=== PATIENT | female | born 1975 | race Caucasian/White ===

== ENCOUNTER 2021-01-26 19:39 | Emergency (ER) | payer OTHER, SELFPAY | END 2021-01-26 21:19 | disposition left against medical advice (07) | PROVIDERS: Emergency Provider Emergency Medicine | DX: M54.2 Cervicalgia (principal) ==

== ENCOUNTER 2024-04-14 11:31 | Emergency (ER) | payer OTHER, SELFPAY ==
--- NOTE | ~2024-04-14 | CT_ITS ---
EXAMINATION: CT HEAD WITHOUT CONTRAST (STROKE PROTOCOL) CLINICAL INFORMATION: Stroke protocol. Headache. Left facial droop and left facial weakness COMPARISON: None available. TECHNIQUE: Contiguous axial imaging was performed from the skull base to vertex without intravenous administration of contrast. This CT examination was performed using dose optimization techniques as appropriate, variously including the following: *Automated exposure control *Adjustment of mA and/or kV according to patient size (this includes techniques or standardized protocols for targeted exams where dose is matched to indication/reason for exam; i.e. extremities or head) *Use of iterative reconstruction technique DLP: 677 mGy/cm. FINDINGS: There is no acute intra-axial, extra-axial bleed, masses or midline shift. There is no acute infarction evolution. There is no edema. The padilla to white matter differentiation is maintained normal. The lateral ventricles are symmetrical in size and configuration without enlargement. Bone windows reveal no calvarial abnormality. CT/CT head for STROKE IMPRESSION: No acute intracranial process seen. This critical result was discussed with Dr. Sanders at 12:35 PM It was ascertained that the content and urgency of the report was understood at the time of direct communication. Electronically signed by: Jasmeet Rivero MD 04/14/2024 12:38 PM [facility]
--- NOTE | ~2024-04-14 | MR_ITS ---
EXAMINATION: MR BRAIN WITHOUT CONTRAST CLINICAL INFORMATION: Acute stroke COMPARISON: None available. TECHNIQUE: MRI of the brain was obtained using routine sequences without contrast. FINDINGS: There is no restricted diffusion seen to suspect any acute ischemic changes. No magnetic sestamibi artifact seen to suspect any acute or chronic hemorrhagic products or calcification. There are T2 FLAIR signal changes in the deep white matter of both cerebral hemispheres without mass effect or edema. The lateral ventricles are symmetrical in size and configuration without enlargement. Normal flow-void signal seen in major cerebral vasculature abnormality seen in the posterior fossa. The lateral ventricles are symmetrical in size and configuration without enlargement. There is focal T2 signal changes left frontal lobe likely inflammatory process. Rest of the paranasal sinuses are well-aerated. MR/MR head/brain wo con IMPRESSION: No acute infarct or acute hemorrhagic changes. No extra-axial collection seen. Scattered small T2 foci in the deep white matter of both frontal lobes, nonspecific and can be seen with hypertension or diabetes. Electronically signed by: Jasmeet Rivero MD 04/14/2024 03:03 PM [facility]
--- NOTE | ~2024-04-14 | CT_ITS ---
EXAMINATION: CT HEAD NECK ANGIOGRAPHY WITH IV CONTRAST STROKE HISTORY: Stroke Protocol, PEÑA COMPARISON: Correlation is made with the unenhanced head CT performed earlier in the day. TECHNIQUE: Helical axial images were obtained from the aortic arch to the vertex after intravenous injection of contrast per standard departmental protocol. Postcontrast imaging of the head was also performed. MIP/3D reconstructions were obtained and reviewed. One or more of the following techniques was used for dose reduction: Automated exposure control, adjustment of the mA and/or kV according to patient size, use of iterative reconstruction technique. DLP: 1460 mGy-cm FINDINGS: CTA NECK: AORTIC ARCH: The visualized portions of the arch as well as innominate, right subclavian, and left subclavian arteries show no hemodynamically significant stenosis. Right common carotid artery: There is no large vessel occlusion or hemodynamically significant stenosis. Right internal carotid artery: There is no large vessel occlusion or hemodynamically significant stenosis. Left common carotid artery: There is no large vessel occlusion or hemodynamically significant stenosis. Left internal carotid artery: There is no large vessel occlusion or hemodynamically significant stenosis. (Extracranial internal carotid artery stenosis estimates are based on use of distal ICA as the denominator.) Right vertebral artery: There is no large vessel occlusion or hemodynamically significant stenosis. Left vertebral artery: There is no large vessel occlusion or hemodynamically significant stenosis. CTA HEAD: Right intracranial ICA: There is no large vessel occlusion, hemodynamically significant stenosis, or aneurysm. Right KOBE: There is no large vessel occlusion, hemodynamically significant stenosis, or aneurysm. Right MCA: There is irregularity of the M1 segment with a possible tiny filling defect (series 6, images 255-258). Findings could represent a small embolus or dissection, although a fenestration could also have this appearance. There is no large vessel occlusion, hemodynamically significant stenosis, or aneurysm. Left intracranial ICA: There is no large vessel occlusion, hemodynamically significant stenosis, or aneurysm. Left KOBE: The proximal portion of the left anterior cerebral artery is hypoplastic. Flow in more distal branches is noted from cross flow from the contralateral side. There is no large vessel occlusion, hemodynamically significant stenosis, or aneurysm. Left MCA: There is no large vessel occlusion, hemodynamically significant stenosis, or aneurysm. Basilar artery: There is no large vessel occlusion, hemodynamically significant stenosis, or aneurysm. Superior cerebellar arteries: There is no large vessel occlusion, hemodynamically significant stenosis, or aneurysm. Right SHROUD LINE TIER: There is no large vessel occlusion, hemodynamically significant stenosis, or aneurysm. Left SHROUD LINE TIER: There is no large vessel occlusion, hemodynamically significant stenosis, or aneurysm. VEINS: Venous enhancement is within normal limits for this technique. SOFT TISSUES: The bilateral parotid, submandibular, and thyroid glands are unremarkable. No laryngeal abnormality is identified. There is no cervical lymphadenopathy. CT/CT angio head neck STROKE IMPRESSION: Possible tiny embolus/dissection of the M1 segment of the right MCA versus a fenestration. Findings were discussed with CRISTOFER Acosta in the ER on 04/14/2024 at 1:49 pm. MRI of the brain is planned. No large vessel occlusion, hemodynamically significant stenosis, or aneurysm in the neck. Electronically signed by: Benedicto So MD 04/14/2024 01:56 PM [facility]
[2024-04-14 11:40] VITALS: BP 146/76; PULSE 72; RESP 16; TEMP 37; O2SAT 99; BMI 33.1
--- NOTE | 2024-04-14 11:43 | ECG_ITS ---
Test Reason : STROKE PROTOCOL Blood Pressure : */* mmHG Vent. Rate : 73 BPM Atrial Rate : 73 BPM P-R Int : 146 ms QRS Dur : 74 ms QT Int : 394 ms P-R-T Axes : 31 -17 21 degrees QTcB Int : 434 ms Normal sinus rhythm Anterior infarct (cited on or before 29-May-2018) Abnormal ECG When compared with ECG of 29-May-2018 17:03, No significant change was found Referred By: Ellen eVloz Electronically Signed By: Aime Barry
--- NOTE | 2024-04-14 11:45 | ED_ITS ---
HPI - General Adult General Chief complaint: Neuro Symptoms/Deficit Stated complaint: Facial numbness L side Time Seen by Provider: 04/14/24 11:48 History of Present Illness ED Provider: Dr. Sanders HPI narrative: 49 y/o F patient; [facility]; presents from work with report of sudden onset left-sided facial numbness, tongue numbness, left-sided facial droop, and mild left-sided headache. The patient otherwise reports mild left upper extremity tingling/numbness. She denies: fever or chills, SOB, cough/congestion, nausea/vomiting, syncope. She denies prior similar symptoms. Related Data Home Medications ?Medication ?Instructions ?Recorded ?Confirmed bictegravir 50 mg-emtricitabine 1 tab PO DAILY 04/14/24 04/14/24 200 mg-tenofovir alafenam 25 mg tablet ([place]oody) Previous Rx's ?Medication ?Instructions ?Recorded prednisone 20 mg tablet 60 mg (3 x 20 mg) PO DAILY 6 days 04/14/24 #18 tabs Allergies Allergy/AdvReac Type Severity Reaction Status Date / Time Penicillins [PENICILLINS] Allergy Unknown HIVES Verified 04/14/24 11:47 Sulfa (Sulfonamide Allergy Unknown HIVES Verified 04/14/24 11:47 Antibiotics) [SULFA(SULFONAMIDE ANTIBIOTICS)] From [facility] Allergy Unknown VOMITING Uncoded 11/26/19 17:18 Review of Systems 2 Review of Systems: Yes all other systems are reviewed and are negative Neurologic: Denies Abnormal speech present and Reports Sensory deficit (Neuro) (Left sided face and LUE) [facility] Past Medical History Attestation statement: The following information was validated with the patient. Source: unable to obtain Social History Social History Smoked in Last 30 Days: No Use of substances other than those prescribed or required for medical reasons: No Advance Directives: No Advance Directives Information Provided: Yes Physical Exam ED Vital Signs: Vital Signs - 24 hr 04/14/24 11:40 04/14/24 12:28 Temperature 98.6 F 98.1 F Pulse Rate 72 83 Respiratory Rate 16 14 Blood Pressure 146/76 H 123/77 Pulse Oximetry 99 98 Oxygen Delivery Method Room Air Room Air BMI result Body Mass Index 33.1 Patient is afebrile, mildly hypertensive. Const General: cooperative Orientation/consciousness: patient oriented x3 HENMT Head: Yes normal to inspection and Yes atraumatic Eyes General: appearance normal, both eyes and all related structures Pupils: Equal, round and reactive pupils present EOM: EOMs intact bilaterally Neck Neck: Yes normal visual inspection, Yes full ROM, Yes supple and No tender Chest Chest palpation & inspection: normal inspection of the chest and normal palpation of entire chest wall Resp Effort & Inspection: normal respiratory effort, able to speak in complete sentences, no cough and no respiratory distress Auscultation: clear to auscultation bilaterally Cardio Rate: regular rate Rhythm: regular rhythm Peripheral pulses: Peripheral pulses 2+ throughout GI Inspection: Yes normal to inspection, No Abdominal wall edema and No distended Palpation (GI): Soft to palpation, not firm, nontender, no guarding and not rigid Auscultation: normal bowel sounds Back/Spine/Pelvis Back: No back tenderness Neuro Other: + very slight left-sided facial droop General: patient oriented x3, moves all extremities and no focal motor deficits Cranial nerves: Yes Equal, round and reactive pupils present Cognition (Neuro): normal cognition Speech: No Abnormal speech present Gait exam (Neuro): Normal gait present Motor exam (neuro): 5/5 motor strength present throughout and Pronator motor function not present Sensory Exam: Sensory deficit (Neuro) (Left sided face and LUE) Coordination: [id number] test normal NIH Stroke Scale Internal: Initial- Upon Arrival Time: 11:45 Level of Consciousness: Alert Level of Consciousness Questions: Answers both questions correctly Level of Consciousness Commands: Performs both tasks correctly Best Gaze: Normal Visual: No visual loss Facial Palsy: Minor paralyis Motor Arm (Right): No drift Motor Arm (Left): No drift Motor Leg (Right): No drift Motor Leg (Left): No drift Limb Ataxia: Absent Sensory: Mild to moderate sensory loss Best Language: No aphasia Dysarthia: Normal Extinction and Inattention: No abnormality Score: 2 Course Course Course Narrative: Patient is afebrile and hemodynamically stable. Sent to the CT scanner for imaging. Possible william's palsy versus CVA/TIA. NIHSS 2 with minor deficits - not a candidate for TNK at this time. CT Head and CTA Brain unremarkable for acute abnormalities. Patient re-evaluated - reports improvement in LUE numbness. Still has mild left facial droop and left-sided facial numbness. Suspect likely william's palsy, less likely TIA/CVA or shingles. Started on prednisone 60mg OD. Discussed necessity for MRI Brain with hospitalist - ordered in the emergency department. I received a notification at 1349 that CTA was concerning for possible tiny embolus/dissection of the M1 segment of the right MCA versus a fenestration. Discussed with Neurology - recommend most likely a fenestration but agree with plan for MRI Brain. MRI Brain is unremarkable. Plan: Discharge to home with PCP follow up Return precautions given Patient given the following instructions: Prednisone 60mg for 6 days Return immediately for rash Medications Administered Discontinued Medications Generic Name Dose Route Start Last Admin Trade Name Freq PRN Reason Stop Dose Admin Iohexol 100 ml 04/14/24 12:09 04/14/24 12:10 Iohexol 350 Mg/Ml 100 Ml Infus..Btl IV 04/14/24 12:10 70 ml ONCE ONE Administration Prednisone 60 mg 04/14/24 12:46 04/14/24 13:16 Prednisone 20 Mg Tablet PO 04/14/24 12:47 60 mg ONCE ONE Administration Medical Decision Making Lab Data 04/14/24 12:00 04/14/24 12:00 Labs: Lab Results 04/14/24 04/14/24 Range/Units 11:48 12:00 WBC 10.3 (4.8-10.8) X10*3/uL RBC 5.08 (4.20-5.50) X10*6/uL Hgb 15.1 (12.0-16.0) g/dl Hct 43.6 (37.0-47.0) % MCV 85.8 (80.0-98.0) fL MCH 29.7 (27.0-33.0) pg MCHC 34.6 (31.0-35.0) g/dl RDW 12.2 (11.0-16.0) % Plt Count 329 (160-400) X10*3/uL MPV 8.5 L (9.4-12.3) fL Immature Gran % (Auto) 0.4 (0.0-0.4) % Neut % (Auto) 60.0 (45-73) % Lymph % (Auto) 30.2 (20-40) % Anson % (Auto) 5.7 (2-11) % Eos % (Auto) 3.4 (0-4) % Baso % (Auto) 0.3 (0-2) % Lymph # (Auto) 3.1 (1.2-4.9) X10*3/uL Anson # (Auto) 0.6 (0.1-1.2) X10*3/uL Eos # (Auto) 0.4 (0.0-0.4) X10*3/uL Baso # (Auto) 0.0 (0.0-0.2) X10*3/uL Abs Immat Gran (auto) 0.04 H (0.00-0.03) X10*3/uL Absolute Neuts (auto) 6.2 (2.0-8.3) x10*3/uL Absolute Nucleated RBC 0.000 (0.0-0.012) X10*3/uL Nucleated RBC % (auto) 0.0 (0.0-0.2) /100WBC Hold Purple Top SEE NOTE PT 10.7 L (10.9-12.4) SEC Whole Blood PT 11.5 (11.1-13.5) sec INR 0.9 (0.9-1.1) Whole Blood INR 1.0 (0.9-1.1) APTT 30.1 (26.0-36.8) SEC Sodium 139 (135-145) mmol/L Potassium 3.7 (3.3-5.1) mmol/L Chloride 106 (96-108) mmol/L Carbon Dioxide 23 (22-29) mmol/L Anion Gap 14 (12-20) BUN 14 (9-16) mg/dL Creatinine 0.77 (0.5-1.4) mg/dL Estim Creat Clear Calc 84.3 Estimated GFR > 60 POC Glucose 118 H (60-115) mg/dL Random Glucose 130 H (60-115) mg/dL Calcium 9.3 (8.4-10.2) mg/dL Troponin I High Sens < 2.7 (<3.5-17.0) ng/L Triglycerides 73 (<150) mg/dL Cholesterol 144 (<200) mg/dL LDL Cholesterol, Calc 81 (<100) mg/dL HDL Cholesterol 49 (>40) mg/dL Beta HCG, Quant < 2 mIU/mL Independent Interpretation I performed an independent interpretation of an: EKG Interpretation: NSR 75BPM without ischemic changes Radiology Impression Discussion of test interpretation with radiology: I have reviewed the radiologist's reading. Radiologist Impression: Report Number: [id number]: Total DLP = 677.00 mGy-cm EXAMINATION: CT HEAD WITHOUT CONTRAST (STROKE PROTOCOL) CLINICAL INFORMATION: Stroke protocol. Headache. Left facial droop and left facial weakness COMPARISON: None available. TECHNIQUE: Contiguous axial imaging was performed from the skull base to vertex without intravenous administration of contrast. This CT examination was performed using dose optimization techniques as appropriate, variously including the following: *Automated exposure control *Adjustment of mA and/or kV according to patient size (this includes techniques or standardized protocols for targeted exams where dose is matched to indication/reason for exam; i.e. extremities or head) *Use of iterative reconstruction technique DLP: 677 mGy/cm. FINDINGS: There is no acute intra-axial, extra-axial bleed, masses or midline shift. There is no acute infarction evolution. There is no edema. The padilla to white matter differentiation is maintained normal. The lateral ventricles are symmetrical in size and configuration without enlargement. Bone windows reveal no calvarial abnormality. CT/CT head for STROKE IMPRESSION: No acute intracranial process seen. This critical result was discussed with Dr. Sanders at 12:35 PM It was ascertained that the content and urgency of the report was understood at the time of direct communication. Electronically signed by: Jasmeet Rivero MD 04/14/2024 12:38 PM [facility] Discharge Plan Discharge Clinical Impression: Facial droop, Left facial numbness, Left arm numbness Patient Disposition: Home, Self-Care Instructions: William Palsy (ED) Additional Instructions: You were seen in the emergency department for left arm numbness, left facial numbness, and left-sided facial droop. Your scans were reassuring. It is possibly you have an early william's palsy. You are being started on Prednisone 60mg once a day for 6 more days - please take this as prescribed. Return immediately to the emergency department for: Facial rash Changes in your vision Numbness/weakness/tingling of your arms or legs Slurred speech Difficulty walking Prescriptions: New prednisone 20 mg tablet 60 mg PO DAILY 6 Days Qty: 18 0RF No Action Biktarvy 50-200-25 mg tablet 1 tab PO DAILY Print Language: Welsh
[2024-04-14 11:52] LABS: Prothrombin Time Whole Bld POC 11.5 sec (11.1-13.5)
[2024-04-14 11:53] LABS: Glucose, Whole Blood 118 mg/dL (60-115)
[2024-04-14 12:06] LABS: MANUAL DIFF FLAG NO
[2024-04-14 12:10] LABS: Basophils Percent Auto 0.3 % (0-2); Eosinophils Absolute Auto 0.4 X10*3/uL (0.0-0.4); Eosinophils Percent Auto 3.4 % (0-4); Hematocrit 43.6 % (37.0-47.0); Hemoglobin 15.1 g/dl (12.0-16.0); Imm Gran Abs Auto 0.04 X10*3/uL (0.00-0.03); Imm Gran Pct Auto 0.4 % (0.0-0.4); Lymphocytes Absolute Auto 3.1 X10*3/uL (1.2-4.9); Lymphocytes Percent Auto 30.2 % (20-40); Mean Corpuscular HGB Conc 34.6 g/dl (31.0-35.0); Mean Corpuscular Hemoglobin 29.7 pg (27.0-33.0); Mean Corpuscular Volume 85.8 fL (80.0-98.0); Mean Platelet Volume 8.5 fL (9.4-12.3); Monocytes Absolute Auto 0.6 X10*3/uL (0.1-1.2); Monocytes Percent Auto 5.7 % (2-11); Neutrophils Absolute Auto 6.2 x10*3/uL (2.0-8.3); Platelet Count 329 X10*3/uL (160-400); Red Blood Count 5.08 X10*6/uL (4.20-5.50); Red Cell Distribution Width 12.2 % (11.0-16.0); White Blood Count 10.3 X10*3/uL (4.8-10.8)
[2024-04-14] MEDS: iohexoL 350 MG/ML 100 ML INFUS..BTL IV (12:10)
--- NOTE | 2024-04-14 12:26 | MHC.STROKE ---
Stroke Alert called in ED Met patient in room 22 and helped transport her to the CT scanner. Pt awake, alert and oriented x 4. Speaking in full clear sentences. No weakness noted. No arm drift noted. Tongue midline. Very mild left sided asymmetry of mouth. Sensation intact on all limbs. Pt reports that she felt well yesterday. Went to bed at 0100 due to working multiple jobs Pt states that she woke at 0300 and felt like my heart was racing . Pt went back to bed and woke at 0530 feeling normal . At 1100 pt reports that her lip (left side) and tongue were tingling. She also reported some numbness to her left hand. Pt reports that she has a headache on her left side rating it 7/10. Stroke Education reviewed. Pamphlet provided. Risk factors discussed including past medical history, medications, diet, activity. All questions answered. Will continue to assist as needed.
[2024-04-14 12:28] VITALS: BP 123/77; PULSE 83; RESP 14; TEMP 36.7; O2SAT 98
[2024-04-14 12:31] LABS: Anion Gap 14 (12-20); Blood Urea Nitrogen 14 mg/dL (9-16); Calcium 9.3 mg/dL (8.4-10.2); Carbon Dioxide 23 mmol/L (22-29); Chloride 106 mmol/L (96-108); Cholesterol 144 mg/dL (<200); Creatinine Clr Calc Pharmacy 84.3; Estimated Glomerular Filt Rate > 60; Glucose Random 130 mg/dL (60-115); HDL Cholesterol 49 mg/dL (>40); LDL Cholesterol Calculated 81 mg/dL (<100); Potassium 3.7 mmol/L (3.3-5.1); Sodium 139 mmol/L (135-145); Triglycerides 73 mg/dL (<150)
[2024-04-14 12:36] LABS: HCG Quantitative < 2 mIU/mL; Troponin-I High Sensitivity < 2.7 ng/L (<3.5-17.0)
[2024-04-14] MEDS: predniSONE 20 MG TABLET 60 MG PO (13:16)
[2024-04-14 13:25] LABS: INTERNATIONAL NORM RATIO 0.9 (0.9-1.1); Prothrombin Time 10.7 SEC (10.9-12.4)
[2024-04-14 13:28] LABS: Partial Thromboplastin Time 30.1 SEC (26.0-36.8)
--- OUTSIDE RECORDS SUMMARY | 2024-04-14 13:40 | XMS_ITS | Encounter Summary ---
Author Organization [place] [address] Care Team Providers Care Dental Service Chief Name Role Phone Julianne Giron MD Primary Care Provider [phone] Reason for Visit * Reason Onset Date Comments Vaginal Discharge 03/24/2024 Encounter Details Date Type Department Care Team ([facility] Contact Info) Description 03/24/2024 Telephone Obstetrics and Gynecology - [address] [phone] Janet Harvey, PA [address] [place] [id number] Vaginal Discharge Social History Tobacco Use Types Packs/Day Years Used Date Smoking Tobacco: Never Smokeless Tobacco: Never Alcohol Use Standard Drinks/Week Comments No 0 (1 standard drink = 0.6 oz pur e alcohol) Sex and Gender Information Value Date Recorded Sex Assigned at Female 09/26/2022 7:28 AM EDT Gender Identity Female 09/26/2022 7:28 AM EDT Sexual Orientation Straight 09/26/2022 7: 28 AM EDT Job Start Date Occupation Industry Not on file Not on file Not on file documented as of this encounter Progress Notes * Reva Silverio RN - 03/24/2024 1:49 PM EST Spoke with patient. Pt c/o white thick vaginal discharge with an itch x2 weeks. Appt scheduled withCNM 03/25/24 @ 830am @ [facility] office * Yenifer Green - 03/24/2024 1:27 PM EST Patient states she has a yeast infection. Itching and discharge. Has been experiencing for 2 weeks. documented in this encounter Plan of Treatment Upcoming Encounters Date Type Department Care Team (Late st Contact Info) Description 04/21/2024 9:00 AM EST Office Visit [facility] - [address] [phone] Ivet Vasques PA [address] [place] [address] 08/05/2024 8:10 AM EDT Appointment Radiology Department - [address] [phone] documented as of this encounter Visit Diagnoses Not on filedocumented in this encounter Care Teams Dental Service Chief Relationship Specialty Start Date End Date Julianne Giron MD [address] [place] [id number] PCP - General Internal Medicine 03/23/21 documented as of this encounter
--- OUTSIDE RECORDS SUMMARY | 2024-04-14 13:40 | XMS_ITS | Clinical Summary ---
Author Organization [facility] [address] [facility] Building Address [address] [place], [place] [address] [address] Phone Care Team Providers Care Glass Belt Sander Name Role Phone Julianne Giron MD Primary Care Provider [phone] Allergies Active Allergy Reactions Criticality Noted Date Comments Oxycodone-Acetaminophen Nausea And Vomiting Penicillin G Potassium 07/15/2007 hives Sulfa (Sulfonamide Antibiotics) Hives 08/10 Medications Medication Sig Dispensed Refills Start Date End Date Status bictegrav-emtricit -tenofov ala (Biktarvy) 30-120-15 mg tablet Take?by mouth. Active cholecalciferol (VITAMIN D-3) 1,250 mcg (50,000 unit) capsule TAKE 1 CAPSULE BY MOUTH ONE TIME PER WEEK 07/19/2023 Active nystatin-triamcino lone (MYCOLOG II) ointmentIndication s:Vulvar itching 3-4x/day to affected area 15 g 03/25/2024 Active fluconazole (Diflucan) 100 mg tablet Take 1 tablet (100 mg total) by mouth 1 (one) time each day for 2 doses. Take 1 today, and if still symptomatic in 3 days, take second tablet 2 each 03/26/2024 03/28/2024 Active Problems Problem Noted Date Diagnosed Date Calcium nephrolithiasis 03/13/2024 Chlamydia 08/19/2023 Vaginal discharge 08/17/2023 Overview (03/13/2024): Last Assessment & Plan: Explained that there is no evidence of infection, but I will send testing to confirm and treat prn. Carpal tunnel syndrome 07/16/2022 Overview (03/13/2024): mild right median mononeuropathy by EMG mild right median mononeuropathy by EMG Heartburn 07/16/2022 Obesity (BMI 30.0-34.9) 07/16/2022 Vitamin D deficiency 07/16/2022 Hypertension 12/25/2021 Pituitary microadenoma 11/29/2021 Resolved Problems Problem Noted Date Diagnosed Date Resolved Date HIV (human immunodeficiency virus infection) 03/13/2024 Overview (03/13/2024): dx 2005 sexually transmitted; [facility] Encounters Date Type Department Care Team Description 04/02/2024 Telephone Adult Medicine [address] [phone] Julianne Giron MD 03/25/2024 8:30 AM EST Office Visit Obstetrics and Gynecology [address] [phone] Yana Bates, BRITTNY Vulvar itching (Primary Dx); Screen for STD (sexually transmitted disease) 03/24/2024 Telephone Obstetrics and Gynecology [address] [phone] Janet Harvey, PA Vaginal Discharge from Last 3 Months Immunizations Name Administration Dates Next Due HPV 9-valent (Gardisil) 9yo to less than 46yo 02/16/2020 Hep A, Unspecified 12/24/2005 Influenza Quadravalent, MDCK , 0.5ml, preservative free (Flucelvax) 6mo and older 12/25/2021 Influenza trivalent, with pr eservative (Fluzone; Afluria) 6mo and older 12/21/2020,01/21/2019,12/24/2017,04/23,01/10/2016,11/29/2008 Influenza, Unspecified 12/21/2020,2013,12/03/2011,05/21,01/13/2007 Meningococcal MCV4P 07/01/2018,07/17/2016 Pfizer SARS-CoV-2 COVID-19, mRNA, LNP-S, preservative free 04/12/2021,11/04/2020,10/14/2020 Pneumococcal conjugate 13 va lent (Prevnar 13, PCV13) 2mo and older 04/15/2009 Pneumococcal conjugate 20 va lent (Prevnar 20, PCV 20) 2mo and older 09/07/2022 Pneumococcal polysaccharide 23 valent (Pneumovax 23) 2yo and older 12/24/2005 Tdap Tetanus diptheria acell ular pertussis (Boostrix; Adacel) 7yo and older 09/07/2022,01/08/2012 Surgical History Surgery Date Site/Laterality Comments TUBAL LIGATION 2005 PROCEDURE: HISTORICAL TUBAL LIGATION ESOPHAGOGASTRODUODENOSCOPY 09/03/07 PROCEDURE: MA EGD TRANSORAL BIOPSY SINGLE/MULTIPLE; COMMENT: Gastritis-bx:gastritis,HPylori+(t reated), Nl SB-bx:Nl COLONOSCOPY 01/28/08 PROCEDURE: MA COLONOSCOPY STOMA DX INCLUDING COLLJ SPEC SPX; COMMENT: Up to cecum, regular preparation, normal colon exam OTHER SURGICAL HISTORY - 2010 Bilateral PROCEDURE: ---- OTHER ----; COMMENT: Fallopian tubes removed [facility], removed due to pain OTHER SURGICAL HISTORY PROCEDURE: ---- OTHER ----; COMMENT: cysts in neck removed OTHER SURGICAL HISTORY PROCEDURE: ---- OTHER ----; COMMENT: kidney stones removed OTHER SURGICAL HISTORY PROCEDURE: ---- OTHER ----; COMMENT: right 1st toe surgery Medical History Medical History Date Comments HIV (human immunodeficiency virus infection) ([facility]) DX:HIV (human immunodeficien cy virus infection) ([facility]); COMMENT: dx 2004 sexually transmitted Calcium nephrolithiasis DX:Calci um nephrolithiasis Hypertension 12/25/2021 DX:Hypertension Family History Medical History Relation Name Comments Other: ear tumor Brother 1 No Known Problems Brother 2 No Known Problems Brother 3 No Known Problems Daughter 1 No Known Problems Daughter 2 No Known Problems Daughter 3 No Known Problems Daughter 4 Other: AIDS Father Breast cancer Maternal Grandmother age 34 bilate ral Colon cancer Maternal Grandmother age 34 at 52. Other: homicide Mother pt was 3yo No Known Problems Sister Cancer of Small Bowel Neg Hx Kidney cancer Neg Hx Ovarian cancer Neg Hx Pancreatic cancer Neg Hx Prostate cancer Neg Hx Uterine cancer Neg Hx Relation Name Status Comments Brother 1 Alive Brother 2 Alive Brother 3 Alive Daughter 1 Alive Daughter 2 Alive Daughter 3 Alive Daughter 4 Alive Father (Age 44) Maternal Grandmother age 34 Mother (Age 36) Sister Alive Social History Tobacco Use Types Packs/Day Years [...] file Not on file Not on file Obstetrics History Para Term AB IAB SAB Ectopic Multiple Livin g Live Births 7 5 5 2 1 1 5 5 Date Outcome GA Total Labor Labor/2nd/3rd Weight Sex Type Anes PTL Tamar A1 A5 Name Clin Term Vag-S pont Living Term Vag-S pont Living Term Vag-S pont Living Term Vag-S pont Living Term Vag-S pont Living IAB SAB Last Filed Vital Signs Vital Sign Reading Time Taken Comments Blood Pressure 136/98 03/25/2024 8:44 AM EST Pulse 72 03/25/2024 8:44 AM EST Temperature - - Respiratory Rate 16 03/25/2024 8:44 AM EST Oxygen Saturation - - Inhaled Oxygen Concentration - - Weight 79.9 kg (176 lb 3.2 oz) 03/25/2024 8:44 A M EST Height 154.9 cm (5' 1 ) 03/25/2024 8:44 AM EST Body Mass Index 33.29 03/25/2024 8:44 AM EST Plan of Treatment Upcoming Encounters Date Type Department Care Team (Late st Contact Info) Description 04/21/2024 9:00 AM EST Office Visit Adult Medicine [address] [phone] Ivet Vasques PA [address] [place] [address] 08/05/2024 8:10 AM EDT Appointment Radiology Department - [address] [phone] Health Maintenance Due Date Last Done Comments MMR Vaccines (1 of 2 - Risk 2-dose series) 1993 Hepatitis B Vaccines (1 of 3 - 19+ 3-dose series) 1994 Hepatitis A Vaccines (2 of 2 - Risk 2-dose series) 06/24/2006 12/24/2005 HPV Vaccines (2 - Risk 3-dose SCDM series) 03/15/2020 02/16/2020 Colorectal Cancer Screening: Colonoscopy 02/11/2022 Depression Screening 02/11/2022 Social Influencers of Health Screening 02/11/2022 Meningococcal ACWY Vaccine (3 - Risk 2-dose series) 07/02/2023 07/01/2018, 07/17/2016 COVID-19 Vaccine ( season) 2023 04/12/2021, 04/12/2021, 11/04/2020, Additional history exists Influenza Vaccine (#1) 2023 , 12/25/2021, 12/21/2020, Additional history exists Hypertension/CHF/CAD Annual BMP Blood Test 11/29/2023 11/28/2022 Breast Cancer Screening 07/25/2025 07/26/19 24, 07/26/2023, 07/17/2022, Additional history exists Cervical Cancer Screening: HPV 05/19/2026 05/19/2021 Cholesterol Screening (Lipid Panel) 11/29/2027 11/28/2022 DTaP,Tdap,and Td Vaccines (3 - Td or Tdap) 09/07/2032 09/07/2022, 01/08/2012 Pneumococcal Vaccine: Pediatrics (0 to 5 Years) and At-Risk Patients (6 to 64 Years) Completed 09/07/2022, 04/15/2009, 12/24/2005 Hepatitis C Screening Completed 10/03/2023 HIB Vaccines Aged Out No longer eligi ble based on patient's age to complete this topic IPV Vaccines Aged Out No longer eligi ble based on patient's age to complete this topic RSV Immunization Patients Under 20 months Aged Out No longer eligible based on patient's age to complete this topic Varicella Vaccines Aged Out No longer eligible based on patient's age to complete this topic Procedures Procedure Name Priority Date/Time Associated Diagnosis Comments TRICHOMONAS VAGINALIS ANTIGEN Routine 03/25/2024 1:55 PM EST Vulvar itching WET PREP, GENITAL Routine 03/25/2024 1:5 5 PM EST Vulvar itching CHLAMYDIA TRACHOMATIS AND NEISSERIA GONORRHOEAE PCR Routine 03/25/2024 1:55 PM EST Vulvar itching Screen for STD (sexually transmitted disease) HEPATITIS C SCREENING Routine 10/03/2023 SCREENING MAMMOGRAPHY BI 2-VIEW BREAST INC CAD Routine 07/26/2023 8:23 AM EDT Encounter for screening mammogram for malignant neoplasm of breast ANNUAL BMP BLOOD TEST Routine 11/28/2022 LIPID PANEL Routine 11/28/2022 HPV Routine 05/19/2021 from Last 3 Months or Most Recently Relevant to Health Maintenance Results * Trichomonas vaginalis antigen (03/25/2024 1:55 PM EST) Pathologist [facility] Trichomonas vaginalis Negative Negative 03/25/2024 9:14 PM EST [facility] Swab Vaginal structure / Unknown Non-blood Collection / Unknown 03/25/2024 1:55 PM EST 03/25/2024 1:55 PM EST Yana Bates CNM LAB MICROBIOLOGY - GENERAL ORDERABLES [facility] [address] [place] [address], * Chlamydia trachomatis and Neisseria gonorrhoeae molecular study (03/25/2024 1:55 PM EST) Pathologist [facility] Neisseria gonorrhoeae PCR Negative Negative LAB MOLECULAR DIAGNOSTICS METHOD 03/26/2024 8:50 AM EST [facility] Chlamydia trachomatis PCR Negative Negative LAB MOLECULAR DIAGNOSTICS METHOD 03/26/2024 8:50 AM EST [facility] Swab Vaginal structure / Unknown Non-blood Collection / Unknown 03/25/2024 1:55 PM EST 03/25/2024 1:55 PM EST Yana Bates [facility] MICROBIOLOGY - GENERAL ORDERABLES [facility] [address] [place] [address], * (ABNORMAL) Wet prep, genital (03/25/2024 1:55 PM EST) Clue Cells, Wet Prep Negative Negative 03/25/2024 9:14 PM EST [facility] Yeast, Wet Prep Positive(A) Negative 03/25/2024 9:14 PM EST [facility] Trichomonas, Wet Prep Indeterminate Negative 03/25/2024 9:14 PM EST [facility] Comment:Refer to Trichomonas antigen. Swab Vaginal structure / Unknown Non-blood Collection / Unknown 03/25/2024 1:55 PM EST 03/25/2024 1:55 PM EST Yana Btaes [facility] MICROBIOLOGY - GENERAL ORDERABLES [facility] [address] [place] [address], [place] [phone] * Hepatitis C Screening (10/03/2023) Pathologist [facility] Hepatitis C Screening Abstracted Historical Provider MD [facility] * SCREENING MAMMOGRAPHY BI 2-VIEW BREAST INC CAD (07/26/2023 8:23 AM EDT) Anatomical Region Laterality Modality Radiographic Cee ging 07/17/2022 8:22 AM EDT Narrative 07/26/2023 1:26 PM EDT This is a summary report. The complete report is available in the patient's medical record. If you cannot access the medical record, please contact the sending organization for a detailed fax or copy. Study: SCREENING MAMMOGRAPHY BI 2-VIEW BREAST INC CAD Technique: Bilateral full-field digital screening mammography is obtained and read in conjunction with computer aided detection. ??Tomosynthesis as well as 2D C-View imaging were obtained. Comparison: Comparison made to multiple prior, most recent July 17, 2022, and most remote April 09, 2016. Breast composition: The breast tissue is heterogeneously dense, which may obscure small masses. Bilateral breasts: No significant masses, suspicious calcifications or other abnormalities are seen in either breast. IMPRESSION: Impression: Bilateral breasts: Negative, no specific mammographic evidence of malignancy. ??Normal interval follow-up is recommended in 12 months. BI-RADS: Category 1: Negative Procedure Note Denny Balderas MD - 10/28/2023 This is a summary report. The complete report is available in thepatient's medical record. If you cannot access the medical record, pleasecontact the sending organization for a detailed fax or copy. Study: SCREENING MAMMOGRAPHY BI 2-VIEW BREAST INC CAD Technique: Bilateral full-field digital screening mammography is obtainedand read in conjunction with computer aided detection. Tomosynthesis aswell as 2D C-View imaging were obtained. Comparison: Comparison made to multiple prior, most recent July 17, 2022,and most remote April 09, 2016. Breast composition: The breast tissue is heterogeneously dense, which mayobscure small masses. Bilateral breasts: No significant masses, suspicious calcifications orother abnormalities are seen in either breast. IMPRESSION: Impression: Bilateral breasts: Negative, no specific mammographic evidence ofmalignancy. Normal interval follow-up is recommended in 12 months. BI-RADS: Category 1: Negative Julianne Giron MD IMG XR PROCEDURES * Annual BMP Blood Test (11/28/2022) Annual BMP Blood Test Abstracted Historical Provider MD [facility] * Lipid panel (11/28/2022) Pathologist [facility] LDL/HDL Ratio 2 0 - 100 Triglycerides 44 0 - 150 mg/dL Cholesterol 173 0 - 200 mg/dL HDL 76 40 mg/dL LDL Cholesterol 89 0 - 100 mg/dL Blood Venous blood specimen / Unknown Historical Provider LAB BLOOD ORDERAB LES * Cervical Cancer Screening: HPV (05/19/2021) Pathologist [facility] Cervical Cancer Screening: HPV No interpreta tion,abstr acted Historical Provider [facility] from Last 3 Months or Most Recently Relevant to Health Maintenance Care Teams Glass Belt Sander Relationship Specialty Start Date End Date Julianne Giron MD [address] [place] [id number] PCP - General Internal Medicine 03/23/21
--- OUTSIDE RECORDS SUMMARY | 2024-04-14 13:40 | XMS_ITS | Encounter Summary ---
Author Organization [place] [address] Care Team Providers Care Greenhouse Staff Name Role Phone Julianne Giron MD Primary Care Provider [phone] Reason for Visit * Reason Comments Vaginitis/Bacterial Vaginosis Encounter Details Date Type Department Care Team ([facility] Contact Info) Description 03/25/2024 8:30 AM EST Office Visit Obstetrics and Gynecology - [facility] [address] [place] [phone] Yana Bates CN [address] [place] [address] Vulvar itching (Primary Dx); Screen for STD (sexually transmitted disease) Social History Tobacco Use Types Packs/Day Years [...] on file documented as of this encounter Last Filed Vital Signs Vital Sign Reading [...] Mass Index 33.29 03/25/2024 8:44 AM EST documented in this encounter Ordered Prescriptions Prescription Sig Dispensed Refills Start Date End Da te nystatin-triamcinolone (MYCOLOG II) ointmentIndications:Vulvar itching 3-4x/day to affected area 15 g 03/25/2024 documented in this encounter Progress Notes * Yana Bates, BRITTNY - 03/25/2024 8:30 AM EST CHIEF COMPLAINT: Vaginitis/Bacterial Vaginosis IDENTIFIER:Edda Arias is a 49 y.o. female. HPI: Edda presents with 2 week(s)of vaginal symptoms of itching . Discharge is white/ pasty. SA withmale partner. LMP last Apr. She has tried no OTC. States typically OTC Monistat make sx worse. The symptoms are worse ROS: Female BRIM CURLER: see HPI PAST MEDICAL HISTORY: OB History Para Term AB Living 7 5 5 2 5 SAB IAB Ectopic Multiple Live Births 1 1 5 # Outcome Date GA Lbr Robert/2nd Weight Sex Type Anes PTL Lv 7 SAB 6 IAB 5 Term Vag-Spont JACKELINE 4 Term Vag-Spont JACKELINE 3 Term Vag-Spont JACKELINE 2 Term Vag-Spont JACKELINE 1 Term Vag-Spont JACKELINE Patient Active Problem List Diagnosis Calcium nephrolithiasis Carpal tunnel syndrome Chlamydia Heartburn Hypertension Obesity (BMI 30.0-34.9) Pituitary microadenoma (CMS/HCC) Vaginal discharge Vitamin D deficiency SOCIAL HISTORY: Social History Tobacco Use Smoking status: Never Smokeless tobacco: Never Substance Use Topics Alcohol use: No FAMILY HISTORY: Family History Problem Relation Name Age of Onset Other (Other: homicide) Mother 36.00 pt was 3yo Other (Other: AIDS) Father No Known Problems Sister Other (Other: ear tumor) Brother No Known Problems Brother No Known Problems Brother Breast cancer Maternal Grandmother age 34 37.00 bilateral Colon cancer Maternal Grandmother age 34 52.00 at 52. No Known Problems Daughter No Known Problems Daughter No Known Problems Daughter No Known Problems Daughter Pancreatic cancer Neg Hx Prostate cancer Neg Hx Uterine cancer Neg Hx Ovarian cancer Neg Hx Kidney cancer Neg Hx Cancer of Small Bowel Neg Hx MEDICATIONS: There are no discontinued medications. ACTIVE MEDICATIONS: Outpatient Medications Marked as Taking for the 03/25/24 encounter (Office Visit) with Yana Bates CNM Medication Sig Dispense Refill ryteyutpq-zsexronw-wpwnakm ala (Biktarvy) 30-120-15 mg tablet Take by mouth. cholecalciferol (VITAMIN D-3) 1,250 mcg (50,000 unit) capsule TAKE 1 CAPSULE BY MOUTH ONE TIME PER WEEK ALLERGIES: @ALL@ PHYSICAL EXAM: Visit Vitals BP (!) 136/98 Pulse 72 Resp 16 Ht 1.549 m (61 ) Wt 79.9 kg (176 lb 3.2 oz) LMP 04/15/2023 (Approximate) Comment: April 2022 BMI 33.29 kg/m?? OB Status Perimenopausal Smoking Status Never BSA 1.79 m?? APPEARANCE: Alert and in no acute distress, Normal, healthy, cooperative ABDOMEN: Soft, non-tender, without organomegaly or palpable masses BRIM CURLER (FEMALE): Normal external genitalia, no lesions, edema or erythema, vagina- clear, white discharge, cervix-pink, no lesions, no cmt, uterus, and adnexa without masses or tenderness RECTUM: No lesions, hemorrhoids, or prolapse SKIN: Skin color, texture, turgor normal. No rashes or lesions. IMPRESSION: 1. Vulvar itching 2. Screen for STD (sexually transmitted disease) PLAN: Mycolog cream ordered - Discussed with patient that yeast and bacterial vaginosis infections are an overgrowth of normal vaginal broderick. In the vagina yeast, bacteria and lactobacillus all balance each other out. If lactobacillus is decreased it can lead to yeast or other bacteria overgrowing and that is when a patient becomes symptomatic. - Discussed with patient things to avoid - wet smear collected, will treat if appropriate All questions answered and agreeable to plan Marvin Bates CNM documented in this encounter Plan of Treatment Upcoming Encounters Date Type Department Care Team (Late st Contact Info) Description 04/21/2024 9:00 AM EST Office Visit Adult Medicine [address] [phone] Ivet Vasques PA [address] [place] [address] 08/05/2024 8:10 AM EDT Appointment Radiology Department - [address] [phone] documented as of this encounter Procedures Procedure Name Priority Date/Time Associated Diagnosis Comments TRICHOMONAS VAGINALIS ANTIGEN Routine 03/25/2024 1:55 PM EST Vulvar itching CHLAMYDIA TRACHOMATIS AND NEISSERIA GONORRHOEAE PCR Routine 03/25/2024 1:55 PM EST Vulvar itching Screen for STD (sexually transmitted disease) WET PREP, GENITAL Routine 03/25/2024 1:5 5 PM EST Vulvar itching documented in this encounter Results * Trichomonas vaginalis antigen (03/25/2024 1:55 PM EST) Trichomonas vaginalis Negative Negative 03/25/2024 9:14 PM [facility] Swab Vaginal structure / Unknown Non-blood Collection / Unknown 03/25/2024 1:55 PM EST 03/25/2024 1:55 PM EST Yana CARDENAS LAB MICROBIOLOGY - GENERAL ORDERABLES [facility] [address] [place] [address], * (ABNORMAL) Wet prep, genital (03/25/2024 1:55 PM EST) Clue Cells, Wet Prep Negative Negative 03/25/2024 9:14 PM EST [facility] Yeast, Wet Prep Positive(A) Negative 03/25/2024 9:14 PM EST [facility] Trichomonas, Wet Prep Indeterminate Negative 03/25/2024 9:14 PM EST [facility] Comment:Refer to Trichomonas antigen. Swab Vaginal structure / Unknown Non-blood Collection / Unknown 03/25/2024 1:55 PM EST 03/25/2024 1:55 PM EST Yana Bates [facility] MICROBIOLOGY - GENERAL ORDERABLES Performing Organization Address City/[facility]/ZIP Co de Phone Number [facility] [address] [place] [address], * Chlamydia trachomatis and Neisseria gonorrhoeae molecular study (03/25/2024 1:55 PM EST) Neisseria gonorrhoeae PCR Negative Negative LAB MOLECULAR DIAGNOSTICS METHOD 03/26/2024 8:50 AM EST [facility] Chlamydia trachomatis PCR Negative Negative LAB MOLECULAR DIAGNOSTICS METHOD 03/26/2024 8:50 AM EST [facility] Swab Vaginal structure / Unknown Non-blood Collection / Unknown 03/25/2024 1:55 PM EST 03/25/2024 1:55 PM EST Yanachandra Bates [facility] MICROBIOLOGY - GENERAL ORDERABLES Performing Organization Address City/[facility]/ZIP Co de Phone Number [facility] [address] [place] [address], documented in this encounter Visit Diagnoses Diagnosis Vulvar itching- Primary Screen for STD (sexually transmitted disease) Screening examination for venereal disease Encounter for screening mammogram for breast cancer documented in this encounter Care Teams Greenhouse Staff Relationship Specialty Start Date End Date Julianne Giron MD [address] [place] [phone] PCP - General Internal Medicine 03/23/21 documented as of this encounter
--- OUTSIDE RECORDS SUMMARY | 2024-04-14 13:40 | XMS_ITS | Encounter Summary ---
Author Organization [employer] [place] [address] Care Team Providers Care Silk Opener Name Role Phone Julianne Giron MD Primary Care Provider [phone] Encounter Details Date Type Department Care Team (Late Contact Info) Description 04/02/2024 Telephone Adult Medicine [address] [phone] Julianne Giron MD [address] [place] [address] Social History Tobacco Use Types Packs/Day Years [...] on file documented as of this encounter Plan of Treatment Upcoming Encounters Date Type Department Care Team (Late Contact Info) Description 04/21/2024 9:00 AM EST Office Visit Adult Medicine [address] [phone] Ivet Vasques PA [address] [place] [address] 08/05/2024 8:10 AM EDT Appointment Radiology Department - [address] [place] [phone] documented as of this encounter Visit Diagnoses Not on filedocumented in this encounter Care Teams Silk Opener Relationship Specialty Start Date End Date Julianne Giron MD [address] [place] [address] PCP - General Internal Medicine 03/23/21 documented as of this encounter
--- NOTE | 2024-04-14 14:13 | PHA.MEDREC ---
Addendum entered by Perfecto Alan 04/14/24 14:18: reviewed Original Note: Pharmacy Consult ? Medication Reconciliation Pharmacy has completed the medication reconciliation. Spoke to patient to confirm med list.
[2024-04-14 14:55] LABS: Stroke Lab Use COMPLETE
[2024-04-14 15:22] VITALS: BP 119/76; PULSE 78; RESP 16; TEMP 36.7; O2SAT 97
[2024-04-14 15:26] VITALS: BP 119/76; PULSE 78; RESP 18; TEMP 36.6; O2SAT 97
== END 2024-04-14 15:26 | disposition home or self-care (01) ==
PROVIDERS: Physician Assistant Medical; Emergency Provider Emergency Medicine; PCP Internal Medicine
DX: R29.810 Facial weakness (principal); R20.0 Anesthesia of skin; R51.9 Headache, unspecified; R94.31 Abnormal electrocardiogram [ECG] [EKG]; R29.702 NIHSS score 2; R10.2 Pelvic and perineal pain; M54.2 Cervicalgia; Z79.899 Other long term (current) drug therapy
CPT/HCPCS: 36415; 70450; 70496; 70498; 70551; 80048; 80061; 82947; 84484; 84702; 85025; 85610; 85730; 93005; 99284; 99285; Q9967

== ENCOUNTER → 2024-04-14 11:43 | Outpatient (BNV) | payer OTHER, SELFPAY | PROVIDERS: Emergency Provider Emergency Medicine; Visit Provider Radiology Diagnostic Radiology | DX: R51.9 Headache, unspecified (principal) | CPT/HCPCS: 70450; 70496; 70498; 70551 ==

== ENCOUNTER 2024-06-01 00:48 | Emergency (ER) | payer OTHER, SELFPAY ==
[2024-06-01 01:10] VITALS: BP 136/85; PULSE 81; RESP 16; TEMP 36.7; O2SAT 98; BMI 32.9
[2024-06-01 03:33] VITALS: BP 161/95; PULSE 78; RESP 16; TEMP 36.8; O2SAT 98
--- NOTE | 2024-06-01 03:35 | PC.NURSE ---
Pt ambulatory to EM 5 from waiting room, assumed care of pt at this time. A&Ox3 skin pwd respirations even unlabored. Hives noted to chest, bilateral arms, torso, back. Pt states rash began on 05/21 seen by pcp given zyrtec, benedryl, and famotidine with no effect, reports worsening hives. Denies any new exposures. Denies accompanying symptoms. Rash itchy in nature. Awaiting primary provider eval, aware of plan of care.
--- NOTE | 2024-06-01 04:06 | PC.NURSE ---
Provider to bedside for primary eval.
--- NOTE | 2024-06-01 04:15 | ED.SKABFB ---
HPI - Skin/Abscess/Foreign Bdy General Chief complaint: Skin/Abscess/Foreign Body Stated complaint: hives Time Seen by Provider: 06/01/24 03:51 Source: patient Mode of arrival: ambulatory Limitations: no limitations History of Present Illness ED Provider: Dr. Kiersten Harrison HPI narrative: patient comes to the emergency room complaining of hives. to patient's knowledge, she does not know what she is allergic to. Four days ago she started out with hives, she was prescribed p.o. famotidine, cetirizine, Benadryl. Patient states that she was doing well until tonight, she started having hives all over her body. Patient states that she has not tried anything new. patient denies any shortness of breath, denies any oropharyngeal swelling or any chest pain. Related Data Home Medications ?Medication ?Instructions ?Recorded ?Confirmed bictegravir 50 mg-emtricitabine 1 tab PO DAILY 04/14/24 04/14/24 200 mg-tenofovir alafenam 25 mg tablet (Biktarvy) Previous Rx's ?Medication ?Instructions ?Recorded prednisone 20 mg tablet 60 mg (3 x 20 mg) PO DAILY 6 days 04/14/24 #18 tabs prednisone 50 mg tablet 50 mg PO DAILY #5 tabs 06/01/24 Allergies Allergy/AdvReac Type Severity Reaction Status Date / Time Penicillins [PENICILLINS] Allergy Unknown HIVES Verified 06/01/24 01:13 Sulfa (Sulfonamide Allergy Unknown HIVES Verified 06/01/24 01:13 Antibiotics) [SULFA(SULFONAMIDE ANTIBIOTICS)] From [facility] Allergy Unknown VOMITING Uncoded 06/01/24 01:13 Review of Systems Review of Systems: Constitutional : No Weight loss, No Fever, No Chills, No Night Sweats, No Fatigue, No Malaise ENT/Mouth : No Hearing loss, No Ear Pain, No Nasal Congestion, No Sinus Pain, No Hoarseness, No sore throat, No Rhinorrhea, No Swallowing Difficulty Eyes: No Eye Pain, No Swelling, No Redness, No Foreign Body, No Discharge, No Vision Changes Cardiovascular : No Chest Pain, No SOB, No Dyspnea on Exertion, No Orthopnea, No Edema, No Palpitations Respiratory : No Cough, No Sputum, No Wheezing, No Smoke Exposure, No Dyspnea Gastrointestinal : No Nausea, No Vomiting, No Diarrhea, No Constipation, No abdominal Pain, No Hematochezia, No Melena Genitourinary : no irregular bleeding, No Dysuria, No Urinary Frequency, No Hematuria, No Urinary Incontinence, No Urgency, No Flank Pain, No Urinary Flow Changes, No Hesitancy Musculoskeletal : No joint pain, No Myalgias, No Joint Swelling Skin : Complaining of hives head to toe Neuro : No Weakness, No Numbness, No Paresthesias, No Loss of Consciousness, No Dizziness, No Headache Psych : No Anxiety/Panic, No Depression, No SI/HI/AH/VH, No Social Issues, Heme/Lymph: No Bruising, No Bleeding,No Lymphadenopathy Endocrine : No Polyuria, No Polydipsia, No Temperature Intolerance [facility] Social History Social History Smoked in Last 30 Days: No Use of substances other than those prescribed or required for medical reasons: No Advance Directives: No Advance Directives Information Provided: Yes Do you have a plan to hurt others: No Plan Patient : No Physical Exam Vital Signs: Vital Signs: Last Vital Signs Temp 98.3 F 06/01/24 03:33 Pulse 78 06/01/24 03:33 Resp 16 06/01/24 03:33 BP 161/95 H 06/01/24 03:33 Pulse Ox 98 06/01/24 03:33 O2 Del Method Room Air 06/01/24 03:33 BMI result Body Mass Index 32.9 Const: Other: Appearance: Alert. Oriented X3. No acute distress. Eyes: Pupils equal, round and reactive to light. ENT: Pharynx normal. No angioedema Neck: Normal inspection. Neck supple. No lymph nodes noted. No crepitus CVS: Normal heart rate and rhythm. Pulses normal. Normal S1 and S2 Respiratory: No respiratory distress. Breath sounds normal. No Wheezing. No rales Abdomen: Soft and nontender. No rigidity. No distention. Skin: S patient has diffuse hives especially over the head an upper extremities. Extremities: No lower extremity edema. No Lacerations. No Rash Neuro: Oriented X 3. No motor deficit. No sensory deficit. Moving all extremities. No slurred speech. CN 2 through 12 grossly intact Psych: calm, cooperative, normal affect Course Course Course Narrative: patient receiving IV fluids, Benadryl, Pepcid and Solu-Medrol. Medications Administered Discontinued Medications Generic Name Dose Route Start Last Admin Trade Name Ame PRN Reason Stop Dose Admin Diphenhydramine HCl 50 mg 06/01/24 04:11 06/01/24 04:27 Diphenhydramine Hcl 50 Mg/Ml Vial IVPUSH 06/01/24 04:12 50 mg ONCE ONE Administration Famotidine 20 mg 06/01/24 04:11 06/01/24 04:27 Famotidine/Pf 20 Mg/2 Ml Vial IVPUSH 06/01/24 04:12 20 mg ONCE ONE Administration Sodium Chloride 1,000 mls @ 999 mls/hr 06/01/24 04:11 06/01/24 05:43 Ns IVCONT 06/01/24 05:11 Infused .Q1H1M ONE Infusion Methylprednisolone Sodium Succinate 125 mg 06/01/24 04:12 06/01/24 04:26 Methylprednisolone Sod Succ 125 Mg/2 Ml Vial IVPUSH 06/01/24 04:13 125 mg ONCE ONE Administration Medical Decision Making Medical Decision Making MDM Narrative: after the medications mentioned above, patient feeling better, hives nearly resolved, itchiness also nearly resolved discussed with the patient to continue taking her current medications and we will add prednisone for a few days. Patient will follow-up with the primary care physician/real estate analyst prior to discharge, no significant abnormality in vitals, no wheezing, no angioedema Critical Care Time Critical Care Time Critical Care Time: Yes Total Critical Care Time: 45 Attestation: I have personally provided critical care time. Time includes review of lab data, radiology results, discussion with consultants, and monitoring for potential decompensation. Intervention performed as documented. Discharge Plan Discharge Clinical Impression: Allergic reaction Patient Disposition: Home, Self-Care Instructions: General Allergic Reaction (ED) Additional Instructions: Please follow-up with your primary care physician tomorrow. If you have any worsening or new symptoms, please return to the emergency room or call 911 Prescriptions: New prednisone 50 mg tablet 50 mg PO DAILY Qty: 5 0RF No Action Biktarvy 50-200-25 mg tablet 1 tab PO DAILY prednisone 20 mg tablet 60 mg PO DAILY 6 Days Qty: 18 0RF Stand Alone Forms: Work/School Release Print Language: Korean
[2024-06-01] MEDS: methylPREDNISolone Sod Succ 125 MG/2 ML VIAL IVPUSH (04:26)
[2024-06-01] MEDS: 0.9 % Sodium Chloride 1,000 ML 999 ML IVCONT (04:27)
[2024-06-01] MEDS: diphenhydrAMINE HCL 50 MG/ML VIAL IVPUSH (04:27)
[2024-06-01] MEDS: Famotidine/PF 20 MG/2 ML VIAL IVPUSH (04:27)
--- NOTE | 2024-06-01 05:56 | PC.NURSE ---
Pt reports positive relief from previously administered medications. Awaiting MD reeval and probable dc home.
[2024-06-01 07:11] VITALS: BP 139/85; PULSE 85; RESP 16; TEMP 36.8; O2SAT 99
== END 2024-06-01 07:12 | disposition home or self-care (01) ==
PROVIDERS: Emergency Provider Emergency Medicine; PCP Internal Medicine
DX: L50.0 Allergic urticaria (principal); Z79.899 Other long term (current) drug therapy
CPT/HCPCS: 96361; 96374; 96375; 99284; J1200; J2919